=== PATIENT | male | born 1960 | race Caucasian/White ===

== ENCOUNTER 2023-08-25 07:34 | Inpatient (IN) ==
[2023-08-23 13:19] LABS: Basophils # (Auto) 0.05 K/mcL (0.00-0.30); Basophils % (Auto) 0.8 % (0.0-2.0); Eosinophils # (Auto) 0.11 K/mcL (0.00-0.70); Eosinophils % (Auto) 1.9 % (0.0-7.0); Hematocrit 49.6 % (40.1-51.0); Hemoglobin 16.6 g/dL (13.7-17.5); Lymphocytes # (Auto) 1.29 K/mcL (1.50-4.80); Lymphocytes % (Auto) 21.7 % (15.5-49.0); Mean Cell Volume 88.9 fL (80.0-100.0); Mean Corpuscular HGB Conc 33.5 g/dL (31.0-36.0); Mean Platelet Volume 10.1 fL (8.8-12.5); Monocytes % (Auto) 8.4 % (1.0-12.0); Platelet Count 184 K/mcL (140-440); RBC 5.58 M/mcL (4.63-6.08); Red Cell Distribution Width 13.1 % (11.5-14.5); WBC 5.9 K/mcL (4.5-11.0)
[2023-08-23 13:39] LABS: Prothrombin Time 13.7 sec (11.9-14.5)
[2023-08-23 14:28] LABS: ALT/SGPT 26 U/L (<40); AST/SGOT 27 U/L (<40); Albumin 4.7 gm/dL (3.2-5.2); Albumin/Globulin Ratio 1.4 (1.0-2.3); Alkaline Phosphatase 74 U/L (39-117); Bilirubin,Total 0.9 mg/dL (0.1-1.0); Blood Urea Nitrogen 27 mg/dL (8-23); Calcium 10.4 mg/dL (8.6-10.4); Carbon Dioxide 25 mmol/L (22-30); Chloride 103 mmol/L (96-108); Globulin 3.4 gm/dL (2.2-3.7); Glomerular Filtration Rate 89; Glucose 95 mg/dL (70-105)
[~2023-08-25 07:34] MED LIST: ceFAZolin 2 GM in DEXTROSE 5% IN WATER 50 ML IV SCH
[2023-08-25] MEDS ORDERED: SUGAMMADEX SODIUM 200 MG/2 ML VIAL IV ONE (09:39)
[2023-08-25] MEDS ORDERED: DEXAMETHASONE 10 MG/ML VIAL ONE (09:39)
[2023-08-25] MEDS ORDERED: KETAMINE 50 MG/ML Syringe IV ONE (09:39)
[2023-08-25] MEDS ORDERED: fentaNYL 100 MCG/2 ML VIAL IV ONE (09:39)
[2023-08-25] MEDS ORDERED: ROCURONIUM 10 MG/ML ML IV ONE (09:39)
[2023-08-25] MEDS ORDERED: LIDOCAINE 2% PF 5 ML VIAL ONE (09:39)
[2023-08-25] MEDS ORDERED: ONDANSETRON 4 MG/2 ML VIAL ONE (09:39)
[2023-08-25] MEDS ORDERED: MAGNESIUM SULFATE 2 GM/50 ML BAG IV ONE (09:41)
[2023-08-25] MEDS ORDERED: PROPOFOL 200 MG/20 ML VIAL IV ONE (09:42)
[2023-08-25] MEDS ORDERED: LACTATED RINGERS 250 ML IV PRN (10:42)
[2023-08-25] MEDS ORDERED: diphenhydrAMINE 50 MG/ML VIAL IV PRN (10:42)
[2023-08-25] MEDS ORDERED: fentaNYL 100 MCG/2 ML VIAL IV PRN (10:42)
[2023-08-25] MEDS ORDERED: IPRATROPIUM/ALBUTEROL 3 ML AMPUL.NEB NEB PRN (10:42)
[2023-08-25] MEDS ORDERED: MEPERIDINE 25 MG/ML VIAL IV PRN (10:42)
[2023-08-25] MEDS ORDERED: METHOCARBAMOL 1,000 MG/10 ML VIAL IV PRN (10:42)
[2023-08-25] MEDS ORDERED: ONDANSETRON 4 MG/2 ML VIAL IV PRN (10:42)
[2023-08-25] MEDS ORDERED: ACETAMINOPHEN 1,000 MG/100 ML BAG IV ONE (10:42)
[2023-08-25] MEDS ORDERED: NALOXONE HCL 0.4 MG/ML VIAL IV PRN (10:42)
[2023-08-25] MEDS ORDERED: PROMETHAZINE 25 MG/ML VIAL IV PRN ×2 (10:42→11:05)
[2023-08-25] MEDS ORDERED: LACTATED RINGERS 1,000 ML IV SCH (10:45)
[2023-08-25] MEDS: 0.9 % SODIUM CHLORIDE 1,000 ML IV SCH ×2 (12:07→20:33)
[2023-08-25] MEDS: 0.9 % SODIUM CHLORIDE 10 ML SYRINGE IV SCH ×2 (14:26→21:56)
[2023-08-25 14:40] LABS: ALT/SGPT 23 U/L (<40); AST/SGOT 27 U/L (<40); Albumin 4.3 gm/dL (3.2-5.2); Albumin/Globulin Ratio 1.6 (1.0-2.3); Alkaline Phosphatase 67 U/L (39-117); Bilirubin,Direct < 0.2 mg/dL (0-0.3); Bilirubin,Total 0.7 mg/dL (0.1-1.0); Blood Urea Nitrogen 23 mg/dL (8-23); Calcium 9.3 mg/dL (8.6-10.4); Carbon Dioxide 24 mmol/L (22-30); Chloride 101 mmol/L (96-108); Globulin 2.7 gm/dL (2.2-3.7); Glomerular Filtration Rate 94; Glucose 119 mg/dL (70-105); Lactate Dehydrogenase 171 U/L (135-225); Phosphorous 2.3 mg/dL (2.5-4.5); Triglycerides 54 mg/dL (<150)
[2023-08-25 14:42] LABS: Prealbumin 18.5 mg/dL (20.0-40.0)
[2023-08-25] MEDS: CHLORHEXIDINE GLUCONATE 15 ML UDC SWABMOUTH SCH (20:35)
[2023-08-26] MEDS: 0.9 % SODIUM CHLORIDE 10 ML SYRINGE IV SCH ×3 (05:17→20:35)
[2023-08-26] MEDS: 0.9 % SODIUM CHLORIDE 1,000 ML IV SCH ×2 (06:09→15:50)
[2023-08-26 06:20] LABS: Basophils # (Auto) 0.02 K/mcL (0.00-0.30); Basophils % (Auto) 0.2 % (0.0-2.0); Eosinophils # (Auto) 0.01 K/mcL (0.00-0.70); Eosinophils % (Auto) 0.1 % (0.0-7.0); Hematocrit 41.9 % (40.1-51.0); Hemoglobin 14.2 g/dL (13.7-17.5); Lymphocytes # (Auto) 1.19 K/mcL (1.50-4.80); Mean Cell Volume 87.3 fL (80.0-100.0); Mean Corpuscular HGB Conc 33.9 g/dL (31.0-36.0); Mean Platelet Volume 10.1 fL (8.8-12.5); Monocytes # (Auto) 0.64 K/mcL (0.10-0.90); Monocytes % (Auto) 6.5 % (1.0-12.0); Neutrophils % (Auto) 80.6 % (38.0-78.0); Platelet Count 161 K/mcL (140-440); Red Cell Distribution Width 13.2 % (11.5-14.5); WBC 9.9 K/mcL (4.5-11.0)
[2023-08-26 06:50] LABS: ALT/SGPT 19 U/L (<40); AST/SGOT 22 U/L (<40); Albumin 3.6 gm/dL (3.2-5.2); Albumin/Globulin Ratio 1.4 (1.0-2.3); Alkaline Phosphatase 61 U/L (39-117); Bilirubin,Direct < 0.2 mg/dL (0-0.3); Bilirubin,Total 0.6 mg/dL (0.1-1.0); Blood Urea Nitrogen 17 mg/dL (8-23); Calcium 8.8 mg/dL (8.6-10.4); Carbon Dioxide 23 mmol/L (22-30); Chloride 104 mmol/L (96-108); Globulin 2.6 gm/dL (2.2-3.7); Glomerular Filtration Rate 99; Glucose 149 mg/dL (70-105); Lactate Dehydrogenase 194 U/L (135-225); Phosphorous 2.9 mg/dL (2.5-4.5); Triglycerides 48 mg/dL (<150); Uric Acid 5.5 mg/dL (2.5-8.0)
[2023-08-26] MEDS: CHLORHEXIDINE GLUCONATE 15 ML UDC SWABMOUTH SCH ×2 (09:04→20:33)
[2023-08-26] MEDS: HYDROmorphone 1 MG/ML SYRINGE IV PRN ×2 (10:00→20:33)
[2023-08-26] MEDS: METOCLOPRAMIDE 10 MG/2 ML VIAL IV SCH ×2 (17:34→23:34)
[2023-08-27] MEDS: 0.9 % SODIUM CHLORIDE 1,000 ML IV SCH ×4 (02:02→23:22)
[2023-08-27] MEDS: HYDROmorphone 1 MG/ML SYRINGE IV PRN ×2 (04:07→10:51)
[2023-08-27] MEDS: 0.9 % SODIUM CHLORIDE 10 ML SYRINGE IV SCH ×3 (05:40→21:53)
[2023-08-27] MEDS: METOCLOPRAMIDE 10 MG/2 ML VIAL IV SCH ×3 (05:40→18:04)
[2023-08-27 06:30] LABS: ALT/SGPT 15 U/L (<40); AST/SGOT 18 U/L (<40); Albumin 3.3 gm/dL (3.2-5.2); Albumin/Globulin Ratio 1.4 (1.0-2.3); Alkaline Phosphatase 55 U/L (39-117); Bilirubin,Direct < 0.2 mg/dL (0-0.3); Bilirubin,Total 0.4 mg/dL (0.1-1.0); Blood Urea Nitrogen 14 mg/dL (8-23); Calcium 8.4 mg/dL (8.6-10.4); Carbon Dioxide 25 mmol/L (22-30); Chloride 106 mmol/L (96-108); Globulin 2.3 gm/dL (2.2-3.7); Glomerular Filtration Rate 106; Glucose 100 mg/dL (70-105); Lactate Dehydrogenase 174 U/L (135-225); Phosphorous 2.5 mg/dL (2.5-4.5); Triglycerides 74 mg/dL (<150); Uric Acid 4.3 mg/dL (2.5-8.0)
[2023-08-27] MEDS: CHLORHEXIDINE GLUCONATE 15 ML UDC SWABMOUTH SCH ×2 (10:50→21:09)
[2023-08-27] MEDS: MAGNESIUM HYDROXIDE 30 ML ORAL.SUSP PT SCH ×2 (16:01→21:09)
[2023-08-27] MEDS: ONDANSETRON 4 MG/2 ML VIAL IV PRN (16:31)
[2023-08-27] MEDS ORDERED: cloNIDine TTS 1 1 PATCH PATCH TD ONE (21:00)
[2023-08-27] MEDS: amLODIPine 10 MG TABLET PO SCH (21:53)
[2023-08-28] MEDS: METOCLOPRAMIDE 10 MG/2 ML VIAL IV SCH ×4 (01:20→17:50)
[2023-08-28] MEDS: MAGNESIUM HYDROXIDE 30 ML ORAL.SUSP PT SCH ×2 (01:20→04:56)
[2023-08-28] MEDS: 0.9 % SODIUM CHLORIDE 10 ML SYRINGE IV SCH ×3 (04:34→20:29)
[2023-08-28] MEDS: ONDANSETRON 4 MG/2 ML VIAL IV PRN ×2 (05:15→12:13)
[2023-08-28 07:50] LABS: Bilirubin,Direct < 0.2 mg/dL (0-0.3)
[2023-08-28 08:42] LABS: ALT/SGPT 20 U/L (<40); AST/SGOT 21 U/L (<40); Albumin 4.2 gm/dL (3.2-5.2); Albumin/Globulin Ratio 1.4 (1.0-2.3); Alkaline Phosphatase 73 U/L (39-117); Bilirubin,Total 0.7 mg/dL (0.1-1.0); Blood Urea Nitrogen 12 mg/dL (8-23); Calcium 9.5 mg/dL (8.6-10.4); Carbon Dioxide 26 mmol/L (22-30); Chloride 95 mmol/L (96-108); Glomerular Filtration Rate 99; Glucose 166 mg/dL (70-105); Lactate Dehydrogenase 283 U/L (135-225); Phosphorous 2.1 mg/dL (2.5-4.5); Triglycerides 65 mg/dL (<150); Uric Acid 3.5 mg/dL (2.5-8.0)
[2023-08-28] MEDS: CHLORHEXIDINE GLUCONATE 15 ML UDC SWABMOUTH SCH ×2 (09:04→21:12)
[2023-08-28] MEDS: amLODIPine 10 MG TABLET PO SCH (09:04)
[2023-08-28] MEDS: 0.9 % SODIUM CHLORIDE 1,000 ML IV SCH ×3 (09:20→21:57)
[2023-08-28] MEDS: METHYLNALTREXONE BROMIDE 12 MG/0.6 ML SYRINGE SQ SCH (15:00)
[2023-08-29] MEDS: METOCLOPRAMIDE 10 MG/2 ML VIAL IV SCH ×3 (00:21→12:13)
[2023-08-29] MEDS: 0.9 % SODIUM CHLORIDE 10 ML SYRINGE IV SCH (06:12)
[2023-08-29] MEDS: 0.9 % SODIUM CHLORIDE 1,000 ML IV SCH ×2 (06:39→10:11)
[2023-08-29] MEDS: amLODIPine 10 MG TABLET PO SCH (08:48)
[2023-08-29] MEDS: CHLORHEXIDINE GLUCONATE 15 ML UDC SWABMOUTH SCH (08:48)
[2023-08-29] MEDS: METHYLNALTREXONE BROMIDE 12 MG/0.6 ML SYRINGE SQ SCH (08:48)
== END 2023-08-29 13:05 | disposition home or self-care (01) | DRG 376 ==
LOC: MEDSUR 07:34 → SUR 07:34 → MEDSUR 10:51
PROVIDERS: ADMIT Family Medicine Adult Medicine; ATTEND Family Medicine Adult Medicine